=== PATIENT | female | born 1965 | race Caucasian/White ===

== ENCOUNTER 2019-04-18 19:25 | Emergency (ER) | payer BC, SELFPAY ==
[2019-04-18 19:36] VITALS: BP 118/66; PULSE 76; RESP 16; TEMP 37.1; O2SAT 99
--- NOTE | 2019-04-18 19:36 | ED.URI ---
HPI - URI/Sore Throat General Chief Complaint: Upper Respiratory Infection Stated Complaint: Cough,Wheezing Source: patient Mode of arrival: ambulatory Limitations: no limitations History of Present Illness HPI Narrative: Patient is a 53-year-old female who presents complaining of cough, congestion, wheezing, fever, sore throat x5 to 6 days. Patient requesting influenza. Patient reports a history of asthma. Patient denies shortness of breath at this time. Patient reports taking [id number] medications with moderate relief. MD elicited complaint: fever and cough Related Data Home Medications Medication Instructions Recorded Confirmed alprazolam 04/18/19 vilazodone [Viibryd] mg 04/18/19 Allergies Allergy/AdvReac Type Severity Reaction Status Date / Time codeine Allergy Unknown Verified 01/29/15 13:38 Penicillins Allergy Unknown Verified 12/19/17 13:17 Sulfa (Sulfonamide Allergy Unknown Verified 12/19/17 13:17 Antibiotics) sulfanilamide Allergy Unknown Verified 04/24/11 10:42 Review of Systems Review of Systems: Narrative: CONSTITUTIONAL: Denies fever, chills, or sweats. EYES: Denies visual changes, redness, or discharge. ENT: Denies rhinorrhea, congestion, or otalgia. Reports sore throat CARDIOVASCULAR: Denies chest pain, palpitations, or edema. RESPIRATORY: Reports cough and wheeze, denies dyspnea. GASTROINTESTINAL: Denies abdominal pain, nausea, vomiting, or diarrhea. GENITOURINARY: Denies dysuria or hematuria. SKIN: Denies rash or itching. MUSCULOSKELETAL: Denies back pain, joint pain, or myalgia. NEUROLOGIC: Denies headache, numbness, dizziness, or weakness. PSYCHIATRIC: Denies anxiety or depression. PMFSH Family History Family History Sibling Family history of sudden Father Acute myocardial infarction Mother Patient's mother is in good health Other Family history of allergic disorder Family history of cardiovascular disease Hypertension Social History Social History Smoking status: Never smoker Second hand tobacco smoke exposure: No Alcohol intake: current Exam Narrative: Exam Narrative: GENERAL: Well-appearing, well-nourished, and in no acute distress. HEAD: Normocephalic, atraumatic. EYES: EOMI. No redness or drainage. Conjunctiva are normal. ENT: Mucous membranes pink and moist. Nares clear. No rhinorrhea. TMs normal bilaterally. Throat normal. Uvula midline. NECK: AROM. Supple. No lymphadenopathy. CHEST: No respiratory distress. Bilateral expiratory wheeze. HEART: Regular rate and rhythm. No murmur appreciated. Normal peripheral pulses. EXTREMITIES: Normal range of motion. No edema. SKIN: Warm, dry, no rash. NEURO: No focal deficits. Alert and oriented x3. Gait steady. PSYCH: Normal affect. No signs of depression or anxiety. Course Vital Signs Vital signs: Influenza negative MDM - URI/Sore Throat MDM Narrative Medical decision making narrative: Influenza negative. Patient most likely has URI. Considering patient's past history of asthma and scattered expiratory wheezes short dose of steroids to be given at this time. Patient agrees with plan of care. Patient is stable for discharge to home with outpatient follow-up as needed Differential Diagnosis Differential diagnosis: Likely upper respiratory infection Critical Care Time Critical Care Time Critical Care Time: No Discharge Plan Discharge Clinical Impression: Upper respiratory infection Qualifiers: URI type: unspecified URI Qualified Code(s): J06.9 - Acute upper respiratory infection, unspecified Patient Disposition: Home, Self-Care Condition: Stable Instructions: Antibiotic Form Additional Instructions: Take medication as directed. Follow-up with your PCP in 3 to 5 days if symptoms persist. You may also take Tylenol and ibuprofen for pain or fever as needed.
== END 2019-04-18 20:19 | disposition home or self-care (01) ==
PROVIDERS: Emergency Provider Nurse Practitioner
DX: J06.9 Acute upper respiratory infection, unspecified (principal); J45.909 Unspecified asthma, uncomplicated
CPT/HCPCS: 87804; 99213; G0463

== ENCOUNTER 2019-08-09 08:40 | Outpatient (CLI) | payer BC, SELFPAY ==
[2019-08-09 09:22] LABS: CRP 0.5 mg/dL (<1.0); Rheumatoid Factor < 8.6 IU/ML (<12); Uric Acid 5.7 mg/dL (2.5-7.5)
[2019-08-09 09:46] LABS: Erythrocyte Sedimentation Rate 21 mm/hr (0-20)
[2019-08-11 18:53] LABS: HLA B27 Negative (Negative)
[2019-08-11 20:14] LABS: Anti Nuclear Antibody Titer 1:40 (Negative)
== END 2019-08-09 08:41 | disposition home or self-care (01) ==
PROVIDERS: PCP Family Medicine; Visit Provider Podiatrist Foot & Ankle Surgery
DX: M25.579 Pain in unspecified ankle and joints of unspecified foot (principal)
CPT/HCPCS: 36415; 84550; 85652; 86038; 86039; 86140; 86430; 86812

== ENCOUNTER → 2019-09-10 07:43 | Outpatient (CLI) | payer BC, SELFPAY ==
--- NOTE | ~2019-09-10 | MR_ITS ---
EXAMINATION: MR ankle RT wo con DATE: 09/10/2019 08:39 INDICATION: Right ankle and foot pain. TECHNIQUE: Magnetic resonance imaging (MRI) of the right ankle was performed without intravenous cont rast. Sequences included sagittal PD-weighted FS FSE, sagittal PD-weighted FSE, coronal PD-weighted F S FSE, coronal PD-weighted FSE, axial PD-weighted FS FSE, and axial PD-weighted FSE. COMPARISON: None. FINDINGS: Medial ankle ligaments: There are changes of prior sprain of superficial component of the deltoid ligament characterized by t hickening and increased signal intensity. Deep component of deltoid ligament is normal. Lateral ankle ligaments: There are changes of prior sprains of anterior talofibular ligament and anterior tibiofibular ligamen t characterized by thickening and increased signal intensity. Calcaneofibular ligament, posterior jocelyn ofibular ligament, and posterior tibiofibular ligaments are normal. Tendons: The peroneal tendons, Achilles tendon, and anterior and medial ankle tendons are normal. Plantar fascia: Normal. Bones/other: Bone alignment is normal. No fracture. Talar dome is normal. Bone marrow signal intensity is normal. Fluid: There is subcutaneous edema at the dorsum and lateral aspect of the foot and anterior and lateral asp ect of the ankle. There is a skin marker dorsal to the Lisfranc joint laterally. IMPRESSION: 1. Subcutaneous edema in the area of the patient's pain. 2. Changes of prior medial and lateral ankle sprains. Reviewed, dictated and finalized at location A.
== END ==
PROVIDERS: Visit Provider Podiatrist Foot & Ankle Surgery
DX: M25.571 Pain in right ankle and joints of right foot (principal); M79.89 Other specified soft tissue disorders; S93.491A Sprain of other ligament of right ankle, initial encounter
CPT/HCPCS: 73721

== ENCOUNTER 2022-05-17 00:17 | Day surgery (SDC) | payer BC, SELFPAY ==
--- NOTE | 2022-05-11 08:45 | PM.IMHP ---
H&P: HPI History of Present Illness Date/Time: 05/11/22 08:45 Chief Complaint: Stress incontinence Narrative: 56-year-old with stress incontinence who desires surgical correction Review of Systems Review of Systems: All systems reviewed & are unremarkable except as noted in HPI and below PMFSH Family History Family History Sibling Family history of sudden Father Acute myocardial infarction Mother Patient's mother is in good health Other Family history of allergic disorder Family history of cardiovascular disease Hypertension Social History Social History Smoking status: Never smoker Second hand tobacco smoke exposure: No Alcohol intake: current Meds Home Medications and Allergies Home Medications Medication Instructions Recorded Confirmed Type alprazolam 0.5 mg tablet 04/18/19 History prednisone 20 mg tablet 20 mg PO BID 5 days #10 tabs 04/18/19 Rx vilazodone 20 mg tablet (Viibryd) mg 04/18/19 History Allergies Allergy/AdvReac Type Severity Reaction Status Date / Time codeine Allergy Unknown Verified 01/29/15 13:38 Penicillins Allergy Unknown Verified 12/19/17 13:17 Sulfa (Sulfonamide Allergy Unknown Verified 12/19/17 13:17 Antibiotics) sulfanilamide Allergy Unknown Verified 04/24/11 10:42 Exam Narrative: No acute distress Alert oriented x3 Urethral hypermobility noted Assessment and Plan Assessment and plan (1) MARTHA (stress urinary incontinence, female): Code(s): N39.3 - Stress incontinence (female) (male) Status: Acute Assessment and Plan: Plan for urethral sling. Understands risks of bleeding, infection, damage to the urinary tract, vaginal mesh extrusion, urinary tract mesh erosion, obstructive voiding requiring secondary procedure, hip and leg pain, dyspareunia. Agrees to proceed
--- NOTE | 2022-05-13 09:44 | SUR.PREOP ---
Report to the Outpatient Waiting Room, entrance under the green pavilion located off [facility], at time 0600 on date 05/17/22. Planned Procedure Time: 0730. Time changes happen often and if your time is changed the preop area will call you the afternoon before. - You and your visitor will be asked to self-screen and do not enter if you have any COVID symptoms. - Only one visitor is requested with a max of two and NO children visitors are allowed at this time. - The patient visitor may be requested to leave or wait in car when not with patient due to distancing restrictions. - A mask is optional within the hospital at this time. Patients may have clear liquids (water, carbonated beverages, clear teas, apple juice) until 3 hours prior to surgery with a maximum of 20 ounces. - NO CLEAR LIQUIDS AFTER 0430 - No food from midnight until time of surgery - Infants may have breast milk until 4 hours before surgery, infant formula 6 hours prior to surgery. - Children will be allowed to drink immediately following surgery. If applicable, please bring a bottle or sippy cup to assist with drinking. Juice, water, soda, and popsicles are readily available. For infants on formula, please bring formula the day of surgery. Pacifiers are allowed. Take the following medications with a SIP of water the morning of surgery: VIIBRYD, BUPROPION, BRING ALBUTEROL INHALER WITH YOU DAY OF SURGERY DO NOT STOP ANY OF YOUR OTHER PRESCRIPTION MEDICATIONS PRIOR TO SURGERY ?EXCEPT THE FOLLOWING Medications to discontinue per physician STOP VITAMINS & SUPPLEMENTS 05/14/22 Please no make-up, nail uzbek, hairspray, perfume, deodorant, or body powder the day of surgery. No jewelry (including any body piercings) or valuables the day of surgery, leave them at home. Please take a shower or bath the night before, or the morning of, surgery with an antibacterial soap. Wear comfortable, loose fitting clothing. Children are encouraged to wear pajamas. - Jewelry must be removed prior to entering the operating room. Rings and piercings that are not removed may be cut off. - The hospital will not accept responsibility for valuables. - Please leave all valuables, including medications, at home the day of surgery. If you are going home after surgery, a licensed truck driver must drive you home. - NO public transportation without another adult if you receive anesthesia. - We recommend that an adult stay with you for 24 hours following discharge. - We also recommend that you do not drive, make important decision, drink alcoholic beverages, or take any drugs that were not prescribed by your health care provider for at least 24 hours after your discharge time. For Pediatric surgeries, we recommend two adults accompany the child home. Follow any additional instructions given to you from your surgeon. If you or anyone in your household have experienced Covid symptoms in the past week, please notify your surgeon or the nurse liaison at the phone number below for possible testing. Telephone instructions given to JM FRYE and asked if any additional questions and then verbalized understanding. Patient advised to call surgeon office or pre surgery nurse liaison [phone] if any additional questions.
[2022-05-13 09:53] VITALS: BMI 27.4
--- NOTE | 2022-05-16 16:09 | P.PNAN_ITS ---
Anes - Initial Pre Proc Eval Procedure: Operation Date: 05/17/22 07:30 Proposed Procedures p Urethral Sling - Gregg Goodwin MD Date/Time: 05/16/22 16:09 Surgeon: Gregg Goodwin MD Pre Op Diagnosis: Stress Incont Patient Data Age: 56 Gender: F Height: 1.63 m Weight: 72.6 kg Allergies Allergy/AdvReac Type Severity Reaction Status Date / Time Penicillins Allergy Severe Rash Verified 05/13/22 09:26 Sulfa (Sulfonamide Allergy Severe Rash Verified 05/13/22 09:26 Antibiotics) Home Medications Medication Instructions Recorded Confirmed Type alprazolam 0.5 mg tablet 0.5 mg PO PRN PRN ONLY WHEN 04/18/19 05/13/22 History PATIENT FLYS vilazodone 20 mg tablet (Viibryd) 20 mg PO DAILY 04/18/19 05/13/22 History Bifidobacterium infantis 4 mg 4 mg PO DAILY 05/13/22 05/13/22 History capsule (Align) albuterol sulfate 90 mcg/actuation 2 puff inhalation PRN shortness of 05/13/22 05/13/22 History aerosol inhaler breath bupropion HCl 300 mg 24 hr tablet, 300 mg PO DAILY 05/13/22 05/13/22 History extended release cetirizine 10 mg tablet (Zyrtec) 10 mg PO DAILY 05/13/22 05/13/22 History cholecalciferol (vitamin D3) 50 50 mcg PO DAILY 05/13/22 05/13/22 History mcg (2,000 unit) capsule (Vitamin D3) fluticasone propionate 50 2 spray intranasal PRN congestion 05/13/22 05/13/22 History mcg/actuation nasal spray,suspension vitamin E 200 unit capsule 200 unit PO DAILY 05/13/22 05/13/22 History Patient hx anesthesia problems: none Family hx anesthesia problems: none Results Review: All pre-operative results and documents have been reviewed as part of the pre- operative evaluation. [facility] Past Medical History Medical History (Updated 05/16/22 @ 16:10 by Yaw López MD) Asthma Overweight (BMI 25.0-29.9) Ureterolithiasis Family History Family History Sibling Family history of sudden Father Acute myocardial infarction Mother Patient's mother is in good health Other Family history of allergic disorder Family history of cardiovascular disease Hypertension Social History Social History Smoking status: Never smoker Second hand tobacco smoke exposure: No Living arrangements: with family Spiritual care concerns: No Anes - Eval Final PreProcedure Day of Procedure 05/16/22 16:09 Patient weight: overweight Heart: regular rate and rhythm Lungs: clear to auscultation and normal air movement Airway: Mallampati scale class II Neurological: alert and oriented Last oral intake: >/= 8 hours ASA classification: II Emergent: no Anesthetic plan: proceed Anesthesia type and monitoring: general GIVS and LMA Results Review: All pre-operative results and documents have been reviewed as part of the pre- operative evaluation. Informed Consent: The patient's anesthetic plan and its attendant risks and benefits were discussed with the patient/family/POA. Questions were solicited and answers provided to the satisfaction of the patient/family/POA.
--- NOTE | 2022-05-17 04:36 | WPDHPUPDATE1 ---
History and Physical Update Update Date/Time: 05/17/22 04:36 History and Physical has been reviewed, including an updated exam of the patient. There are NO changes in the patient's condition. Risks, benefits, and alternatives have been discussed and questions answered. Patient agrees to proceed with procedure.
[2022-05-17] MEDS: LACTATED RINGERS 1,000 ML 30 ML IV CONT (06:30)
[2022-05-17 07:00] VITALS: BP 110/72; PULSE 67; RESP 16; TEMP 36.6; O2SAT 98
[2022-05-17] MEDS: ceFAZolin 2 GM/D5W 50 ML 2 GM/50 ML BAG IVPB (07:25)
[2022-05-17] MEDS: BUPIVACAINE/EPINEPHRINE 0.25% 10 ML VIAL INFILTRATE (07:46)
[2022-05-17 07:58] VITALS: BP 114/62; PULSE 86; RESP 16; O2SAT 96
--- NOTE | 2022-05-17 08:03 | W.PM.PROC2 ---
Procedure Note - Detailed Date of Procedure 05/17/22 Pre-op Diagnosis Stress Incont Post-op Diagnosis Same Procedure Performed mid urethral sling cystoscopy Surgeon Gregg Goodwin MD Anesthesia MAC Indications This is a female with confirm stress urinary incontinence. She desires surgical correction. She understands the risks of bleeding, infection, injury to the urinary tract, vaginal mesh extrusion, urinary tract mesh erosion, obstructive voiding requiring a secondary procedure, hip and leg pain, dyspareunia, inability to improve overactive bladder symptoms. She agrees to proceed. Description of Procedure She was correctly identified. Informed consent obtained. She was brought the operating room. She was given appropriate anesthesia. She was given appropriate perioperative antibiotics. A time-out performed. I marked out the site of the inner thigh incisions. I anesthetized the skin and made those incisions. I anesthetized the anterior vaginal wall over the mid urethra. I made a 1 cm incision. I dissected out laterally taking great care not to injure the refilled vaginal wall. I passed the helical trocars. First on the left. Then on the right. I did this from the thigh incision towards the vaginal incision. The sling was connected to the trocars and brought out through the thigh incision. I tensioned the sling appropriately. I cut and the plastic sheaths. I then closed the incision with 2 0 Vicryl. On cystoscopy there is no tumors or surgical artifact. There was no surgical artifact in the urethra. I cut the excess sling material. Close incisions with glue. She was awakened and transferred to the PACU in stable condition. Implants Urethral sling Estimated Blood Loss 30 Urine Output -90.0 Drains No Packing No Pathology None sent Complications No immediate complications Condition Stable Disposition PACU
[2022-05-17] MEDS: oxyCODONE HCL (*CRX) 5 MG TAB IR PO (08:13)
[2022-05-17] MEDS: ONDANSETRON INJ 4 MG/2 ML VIAL IV PUSH (08:25)
[2022-05-17 08:55] VITALS: BP 119/61; PULSE 62
== END 2022-05-17 09:05 | disposition home or self-care (01) ==
PROVIDERS: Visit Provider Urology
PROC: (CPT 57288; principal; 2022-05-17 07:30)
DX: N39.3 Stress incontinence (female) (male) (principal); J45.909 Unspecified asthma, uncomplicated; Z79.51 Long term (current) use of inhaled steroids
CPT/HCPCS: 57288; A9270; C1771; J0690; J2250; J2405; J2704; J3010; J7030; J7120